=== PATIENT | female | born 1990 | race Caucasian/White ===

== ENCOUNTER 2016-05-24 06:42 | Emergency (ER) | payer OTHER ==
[2016-05-24 06:52] VITALS: BP 112/77
[2016-05-24] MEDS ORDERED: ONDANSETRON ODT 4 MG TAB.RAPDIS PO ONE (07:15)
[2016-05-24] MEDS ORDERED: MORPHINE SULFATE 5 MG/ML SYRINGE. IM ONE (07:15)
--- NOTE | 2016-05-24 14:59 | ED.ADGEN ---
Past History Past Medical History: Depression, Seizure Past Surgical History: Tonsillectomy Alcohol Use: None Drug Use: None Adult General Chief Complaint Chief Complaint Low back pain HPI HPI Patient is a 25-year-old male with history of chronic back pain who presents with increased low back pain after weightlifting yesterday. Symptoms are worse this morning. No relief with ibuprofen and home remedies. Pain is nonradiating. No other acute symptoms or complaints. Review of Systems Review of Systems ROS as per hpi Current Medications Current Medications Current Medications Medications (Trade) Dose Ordered Sig/Lesvia Start Time Stop Time Status Last Admin Dose Admin Morphine Sulfate (Morphine 5mg Syringe) 5 mg 1X ONCE 05/24/16 07:15 3 07:16 DC 05/24/16 07:15 5 MG Ondansetron HCl (Zofran Odt) 4 mg 1X ONCE 05/24/16 07:15 05/24/16 07:16 DC 05/24/16 07:15 4 MG Allergies Allergies Allergies Coded Allergies Type Severity Reaction Last Updated Verified No Known Drug Allergies 04/13/16 No Physical Exam Physical Exam Constitutional: Well developed, well nourished, no acute distress, non-toxic appearance. HENT: Normocephalic, atraumatic, bilateral external ears normal. Eyes: PERRLA, EOMI, conjunctiva normal. Neck: Normal range of motion. Cardiovascular:Heart rate regular rhythm, no murmur. Lungs & Thorax: Bilateral breath sounds clear to auscultation. Back: No midline tenderness. Bilateral lobar paravertebral pain, tenderness. SLR positive on left. Neurologic: Alert and oriented X 3, lower extremities, no motor weakness or loss of sensation. Psychologic: Affect normal, judgement normal, mood normal. Current Patient Data Vital Signs Vital Signs Date Time Temp Pulse Resp B/P Pulse Ox O2 Delivery O2 Flow Rate FiO2 05/24/16 07:15 18 05/24/16 06:52 98.5 86 99 Room Air EKG EKG [] Radiology/Procedures Radiology/Procedures [] Impressions: Acute lumbar back pain Course & Med Decision Making Course & Med Decision Making Pertinent Labs and Imaging studies reviewed. (See chart for details) [No neurologic deficits. Supportive measures recommended.] Final Impression Final Impression Lumbar radiculopathy [] Problems: Dragon Disclaimer Dragon Disclaimer This electronic medical record was generated, in whole or in part, using a voice recognition dictation system. MEGHAN MEJIA DO May 24, 2016 14:59
== END 2016-05-24 07:30 | disposition home or self-care (01) ==
LOC: ER 06:42
DX: M54.16 Radiculopathy, lumbar region (principal); G89.29 Other chronic pain
CPT/HCPCS: 96372; 99283; J2270; Q0162

== ENCOUNTER 2016-10-03 09:53 | Emergency (ER) | payer OTHER ==
--- NOTE | 2016-10-03 10:30 | PHYS DOC ---
Past History Past Medical History: Depression, Seizure Past Surgical History: Tonsillectomy Alcohol Use: None Drug Use: None Adult General Chief Complaint Chief Complaint: VAGINAL BLEEDING HPI HPI Patient is a 26 year old F who presents with pelvic cramping and spotting. Patient is who is approximately 2 months who presents with vaginal spotting for the past day. Patient states this morning she started having abdominal cramps. Patient denies any passage of tissue. Patient denies any vaginal discharge or history of sexually transmitted diseases. Patient denies any nausea/vomiting/diarrhea. Patient denies any fevers. Patient is no other complaints. Review of Systems Review of Systems GEN: Denies fevers, chills, sweats HEENT: Denies blurred vision, sore throat CV: Denies chest pain RESP: Denies shortness of air, cough GI: Denies n/v/d NEURO: Denies confusion, dizziness MSK: Denies weakness, joint pain/swelling Allergies Allergies Allergies Coded Allergies Type Severity Reaction Last Updated Verified No Known Drug Allergies 04/13/16 No Physical Exam Physical Exam GEN.: No apparent distress. Alert and oriented. HEENT: Head is normocephalic, atraumatic NECK: Supple. LUNGS: CTAB. HEART: RRR, S1, S2 present. Peripheral pulses intact ABDOMEN: Soft, nontender. Positive bowel sounds. EXTREMITIES: Without any cyanosis. NEUROLOGIC: Normal speech, normal tone PSYCHIATRIC: Normal affect, normal mood. SKIN: No ulcerations Current Patient Data Vital Signs Laboratory Tests Test 10/03/16 10:43 10/03/16 11:45 10/03/16 11:55 White Blood Count 8.6 x10^3/uL Red Blood Count 5.14 x10^6/uL Hemoglobin 14.9 g/dL Hematocrit 44.8 % Mean Corpuscular Volume 87 fL Mean Corpuscular Hemoglobin 29 pg Mean Corpuscular Hemoglobin Concent 33 g/dL Red Cell Distribution Width 12.9 % Platelet Count 248 x10^3/uL Neutrophils (%) (Auto) 65 % Lymphocytes (%) (Auto) 22 % Monocytes (%) (Auto) 9 % Eosinophils (%) (Auto) 3 % Basophils (%) (Auto) 1 % Neutrophils # (Auto) 5.6 x10^3uL Lymphocytes # (Auto) 1.9 x10^3/uL Monocytes # (Auto) 0.8 x10^3/uL Eosinophils # (Auto) 0.3 x10^3/uL Basophils # (Auto) 0.1 x10^3/uL Maternal Serum HCG Beta Subunit 393892 mIU/mL Sodium Level 137 mmol/L Potassium Level 3.3 mmol/L Chloride Level 101 mmol/L Carbon Dioxide Level 29 mmol/L Anion Gap 7 Blood Urea Nitrogen 5 mg/dL Creatinine 0.8 mg/dL Estimated GFR (Cockcroft-Gault) 86.7 BUN/Creatinine Ratio 6 Glucose Level 94 mg/dL Calcium Level 9.2 mg/dL Total Bilirubin 0.3 mg/dL Aspartate Amino Transf (AST/SGOT) 14 U/L Alanine Aminotransferase (ALT/SGPT) 35 U/L Alkaline Phosphatase 85 U/L Total Protein 8.1 g/dL Albumin 3.8 g/dL Albumin/Globulin Ratio 0.9 Urine Collection Type Unknown Urine Color Straw Urine Clarity Cloudy Urine pH 6.5 Urine Specific [place] <=1.005 Urine Protein Neg Urine Glucose (UA) Neg mg/dL Urine Ketones (Stick) Neg mg/dL Urine Blood Small Urine Nitrite Neg Urine Bilirubin Neg Urine Urobilinogen Dipstick 0.2 mg/dL Urine Leukocyte Esterase Trace Urine RBC 3-5 /HPF Urine WBC 5-10 /HPF Urine Squamous Epithelial Cells Mod /LPF Urine Bacteria Few /HPF Urine Mucus Mod /LPF Bedside Urine HCG, Qualitative hcg positive EKG EKG [] Radiology/Procedures Radiology/Procedures Obstetrical ultrasound, 10/03/2016: History: First trimester bleeding Transabdominal and transvaginal scans were obtained. The uterus contains a single gestational sac. The gestational sac contains a pole demonstrating a crown-rump length of 1.4 cm. This is compatible with a gestational age of 7-8 weeks yielding a sonographic EDC of 05/17/2016. motion and cardiac activity is present. The heart rate was 150 bpm. There is a tiny 9 mm fluid collection along the inferior margin of the gestational sac compatible with a subchorionic hemorrhage. A 2.9 cm simple cyst is present in the right ovary. The left ovary is unremarkable. No free fluid is evident in the pelvis. IMPRESSION: 1. Single viable intrauterine fetus of 7-8 weeks gestational age. 2. Tiny subchorionic hemorrhage. 3. Small right ovarian cyst.[] Course & Med Decision Making Course & Med Decision Making Pertinent Labs and Imaging studies reviewed. (See chart for details) ED course: Patient was seen and evaluated, CBC, CMP, UA, urine , transvaginal ultrasound, Rh was ordered 1240: Updated the patient on lab results and ultrasound results which showed a IUP with heart tones at 150. Explained ultrasound findings of a subchorionic hemorrhage to the patient and the need to follow-up with CLINICAL NUTRITION MANAGER. Explained to the patient pelvic rest until she follows up. 1245: Patient states she's having increased urinary frequency with no burning therefore will go ahead and place the patient antibiotics for UTI MDM: After reviewing the chart, CC/HPI/PMH, physical exam, [lab results], [ radiological results], I do not believe the patient having active miscarriage or demise at this time or an atopic . Patient has a chronic hemorrhage and is stable be discharged with short-term follow-up with her OB/ [facility] C[facility] TECHNICIAN and pelvic rest. This plan was discussed the patient who is in agreement. Additional verbal discharge instructions were provided to the patient and that if symptoms get worse or any new symptoms arise that are worrisome to the patient she is to return to the emergency room immediately [] Dragon Disclaimer Dragon Disclaimer This chart was dictated in whole or in part using Voice Recognition software in a busy, high-work load, and often noisy Emergency Department environment. It may contain unintended and wholly unrecognized errors or omissions. Departure Departure: Impression: Primary Impression: Threatened miscarriage in early Additional Impressions: Vaginal bleeding before 22 weeks gestation Subchorionic hemorrhage in first trimester Urinary tract infection Disposition: 01 HOME, SELF-CARE Condition: IMPROVED Referrals: CECILIA BENDER DO, M[facility] (PCP) Patient Instructions: Subchorionic Hematoma Additional Instructions: Please follow-up with her CLINICAL NUTRITION MANAGER in one to 2 days and pelvic rest until follow- up Scripts Nitrofurantoin Monohyd/M-Cryst (MACROBID 100 MG CAPSULE) 100 Mg Capsule 1 CAP PO BID, #10 CAP Prov: CADY FERNÁNDEZ DO 10/03/16 Problem Qualifiers CADY FERNÁNDEZ DO Oct 03, 2016 10:30
[2016-10-03 11:07] LABS: BASO # 0.1 x10^3/uL (0.0-0.2); BASO % 1 % (0-3); EOS # 0.3 x10^3/uL (0.0-0.7); EOS % 3 % (0-3); HEMATOCRIT 44.8 % (36.0-47.0); HEMOGLOBIN 14.9 g/dL (12.0-15.5); LYMPH # 1.9 x10^3/uL (1.0-4.8); LYMPH % 22 % (24-48); MEAN CORPUSCULAR HEMOGLOBIN 29 pg (25-35); MEAN CORPUSCULAR HGB CONC 33 g/dL (31-37); MEAN CORPUSCULAR VOLUME 87 fL (79-100); MONO # 0.8 x10^3/uL (0.0-1.1); MONO % 9 % (0-9); NEUT # 5.6 x10^3uL (1.8-7.7); NEUT % 65 % (31-73); PLATELET COUNT 248 x10^3/uL (140-400); RED BLOOD COUNT 5.14 x10^6/uL (3.50-5.40); RED CELL DISTRIBUTION WIDTH 12.9 % (11.5-14.5); WHITE BLOOD COUNT 8.6 x10^3/uL (4.0-11.0)
[2016-10-03 11:14] LABS: ALBUMIN 3.8 g/dL (3.4-5.0); ALBUMIN/GLOBULIN RATIO 0.9 (1.0-1.7); CALCIUM 9.2 mg/dL (8.5-10.1); CREATININE 0.8 mg/dL (0.6-1.0); GFR 86.7; POTASSIUM 3.3 mmol/L (3.5-5.1); TOTAL BILIRUBIN 0.3 mg/dL (0.2-1.0); TOTAL PROTEIN 8.1 g/dL (6.4-8.2)
--- NOTE | 2016-10-03 12:10 | RAD ---
Obstetrical ultrasound, 10/03/2016: History: First trimester bleeding Transabdominal and transvaginal scans were obtained. The uterus contains a single gestational sac. The gestational sac contains a pole demonstrating a crown-rump length of 1.4 cm. This is compatible with a gestational age of 7-8 weeks yielding a sonographic EDC of 05/17/2016. motion and cardiac activity is present. The heart rate was 150 bpm. There is a tiny 9 mm fluid collection along the inferior margin of the gestational sac compatible with a subchorionic hemorrhage. A 2.9 cm simple cyst is present in the right ovary. The left ovary is unremarkable. No free fluid is evident in the pelvis. IMPRESSION: 1. Single viable intrauterine fetus of 7-8 weeks gestational age. 2. Tiny subchorionic hemorrhage. 3. Small right ovarian cyst.
[2016-10-03 12:14] LABS: BACTERIA,URINE FEW /HPF (0-FEW); BILIRUBIN,URINE NEG (NEG); CLARITY,URINE CLOUDY; COLOR,URINE STRAW; GLUCOSE,URINE NEG (NEG); NITRITE,URINE NEG (NEG); SQUAMOUS EPITHELIAL CELL,UR MOD /LPF; UROBILINOGEN,URINE 0.2 mg/dL (0.2 mg/dL)
[2016-10-03] MEDS ORDERED: NITR100C62 PO (12:49)
[2016-10-03 13:08] VITALS: BP 104/68
== END 2016-10-03 13:08 | disposition home or self-care (01) ==
LOC: ER 09:53
DX: O20.0 Threatened abortion (principal); O23.41 Unspecified infection of urinary tract in pregnancy, first trimester; Z3A.08 8 weeks gestation of pregnancy
CPT/HCPCS: 36415; 76801; 76817; 80053; 81001; 81025; 84702; 85027; 86901; 87086; 99285-25

== ENCOUNTER → 2017-10-02 | Outpatient (CLI) | payer OTHER ==
[~2017-10-02] MED LIST: 0.9 % SODIUM CHLORIDE 10 ML VIAL ONE; DEXAMETHASONE SOD PHOS 4 MG/ML VIAL ONE; IOHEXOL 300 MG/ML 50 ML VIAL. ONE; LIDOCAINE 1% PF 30 ML VIAL. ONE; NITR100C62 PO
== END | disposition home or self-care (01) ==
LOC: SURG 13:07
PROVIDERS: ATTEND Anesthesiology
DX: M54.16 Radiculopathy, lumbar region (principal)
CPT/HCPCS: 62323; J1100; J2001; Q9967